=== PATIENT | female | born 1995 | race Hispanic/Latino ===

== ENCOUNTER 2018-07-11 12:23 | Emergency (ER) | payer OTHER ==
[2018-07-11 13:00] LABS: #Eosinphils 0.1 thou/uL (0.0-0.7); #Monocytes 0.8 thou/uL (0.11-0.59); #Neutrophils 6.5 thou/uL (1.40-6.50); %Basophils 0.3 % (0.0-1.0); %Eosinophils 1.1 % (0.0-10.0); %Lymphocytes 21.2 % (21.0-51.0); %Monocytes 8.1 % (0.0-10.0); %Neutrophils 69.3 % (42.0-75.0); Hemoglobin 12.4 g/dL (12.0-16.0); Mean Corpuscular HGB CONC 33.6 g/dL (32.0-36.0); Mean Corpuscular Hemoglobin 29.8 pg (27.0-31.0); Mean Corpuscular Volume 88.6 fL (78.0-98.0); Mean Platelet Volume 8.2 fL (7.4-10.4); Platelet Count 278 thou/uL (130-400); RBC Distribution Width 13.6 % (11.5-14.5); Red Blood Cell (RBC) Count 4.16 mill/uL (4.20-5.40); White Blood Cell (WBC) Count 9.4 thou/uL (4.8-10.8)
[2018-07-11 13:24] LABS: ALT (SGPT) 10 U/L (8-55); AST (SGOT) 11 U/L (5-34); Albumin 3.4 g/dL (3.5-5.0); Alkaline Phosphatase 60 U/L (40-150); Anion Gap 15 mmol/L (10-20); BUN (Urea Nitrogen) 10 mg/dL (7.0-18.7); Bilirubin, Total 0.3 mg/dL (0.2-1.2); Calc. Creatinine Clearance 0 mL/min (70-130); Calcium 8.9 mg/dL (7.8-10.44); Carbon Dioxide 17 mmol/L (22-29); Chloride 109 mmol/L (98-107); Estimated GFR-MDRD Greater than 90; Globulin 3.1 g/dL (2.4-3.5); Glucose 92 mg/dL (70-105); Potassium 3.6 mmol/L (3.5-5.1); Protein, Total 6.5 g/dL (6.0-8.3); Sodium 137 mmol/L (136-145)
[2018-07-11 13:56] LABS: Bilirubin Negative (Negative); Blood, Urine Large (Negative); Clarity CLEAR (Clear); Glucose, Urine (Dipstick) Negative (Negative); Leukocyte Small (Negative); Nitrite Negative (Negative); Protein, Urine (Dipstick) Negative (Neg-Trace); Specific Gravity, Urine 1.022 (1.002-1.036); Urobilinogen 0.2 mg/dL (0.2-1.0)
[2018-07-11 13:58] LABS: Bacteria/HPF None Seen HPF (None Seen); Hyaline Casts/LPF 4-6 HYALINE CAST LPF (0-3 Hyaline)
[2018-07-13 20:35] LABS: Chlamydia by PCR DETECTED (NotDetected); GC by PCR Not Detected (NotDetected)
== END 2018-07-11 14:57 | disposition home or self-care (01) ==
LOC: ERS 12:23
DX: Z3A.17 17 weeks gestation of pregnancy (principal); O20.0 Threatened abortion; O99.512 Diseases of the respiratory system complicating pregnancy, second trimester; J45.909 Unspecified asthma, uncomplicated
CPT/HCPCS: 36415; 80053; 81003; 81015; 84702; 85025; 87480; 87491; 87510; 87591; 87660; 99284

== ENCOUNTER 2018-12-20 19:15 | Inpatient (IN) | payer OTHER ==
[~2018-12-20 19:15] MED LIST: Acetaminophen 500 MG TAB PO PRN; Bupivacaine/Epinephrine 0.25% 30 ML VIAL ONE; Butorphanol Tartrate 1 MG/ML VIAL SLOW IVP PRN; Carboprost 250 MCG/ML AMP IM PRN; Diphenoxylate HCl/Atropine Tablet PO PRN; Docusate 100 MG CAP PO PRN; HYDROcodone/Acetaminophen 5/325 mg Tablet PO PRN; Ibuprofen 800 MG TAB PO PRN; Lidocaine 1% (PF) 30 ML VIAL SC PRN; Lidocaine 2% MPF 10 ML AMP (For Epidural Use) ONE; Methylergonovine 0.2 MG/ML VIAL IM PRN; Misoprostol 200 MCG TAB PR PRN; Ondansetron PF 4 MG/2 ML Vial IVP PRN; PROPOFOL 200 MG/20 ML VIAL ONE; Promethazine HCl 25 MG/ML VIAL IM PRN; Succinylcholine Chloride 20 MG/ML 10 ml SYRINGE FS ONE; Zolpidem Tartrate 5 MG TAB PO PRN; hydrALAZINE 20 MG/ML VIAL SLOW IVP PRN
--- NOTE | 2018-12-20 19:25 | PDOC.LDHP ---
Labor and Delivery H&P Chief complaint: scheduled induction HPI: 23 y/o at 40 and 4/7 weeks for term induction (post-dates). Current gestational age (weeks): 40 Due date: 12/16/18 Grav: 1 Para: 0 Current complications: none Abnormal US findings: No Current medications: pre- vitamins Previous surgical history: none Allergies/Adverse Reactions: Allergies Allergy/AdvReac Type Severity Reaction Status Date / Time No Known Allergies Allergy Unverified 02/23/14 11:53 - Physical Exam Vital signs reviewed and normal: yes General: NAD, resting Heart: RRR Lungs: CTAB Abdomen: gravid Extremeties: no edema FHT: category 1 - Assessment L&D Assessment: elective induction at term - Plan Plan: admit to L&D, cervical ripening
[2018-12-20] MEDS ORDERED: NS w/ Oxytocin 10 units 500 ML IV SCH (19:45)
[2018-12-20] MEDS ORDERED: NS / Oxytocin 40 units/1000ml 1,000 ML IV PRN (20:00)
[2018-12-20 20:12] VITALS: BMI 38.4
[2018-12-20 20:24] LABS: Hemoglobin 10.4 g/dL (12.0-16.0); Mean Corpuscular HGB CONC 32.9 g/dL (32.0-36.0); Mean Corpuscular Hemoglobin 26.7 pg (27.0-31.0); Mean Corpuscular Volume 81.2 fL (78.0-98.0); Mean Platelet Volume 9.5 fL (7.4-10.4); Platelet Count 246 thou/uL (130-400); RBC Distribution Width 13.6 % (11.5-14.5); Red Blood Cell (RBC) Count 3.88 mill/uL (4.20-5.40); White Blood Cell (WBC) Count 14.1 thou/uL (4.8-10.8)
[2018-12-20] MEDS: Misoprostol 100 MCG TAB VAG SCH ×2 (20:45→20:58)
[2018-12-20] MEDS: Lactated Ringer's 1,000 ML IV SCH (20:47)
[2018-12-20 21:02] LABS: Syphilis Antibody Nonreactive (Nonreactive); Syphilis Antibody Index 0.07 S/CO (<1.00 Non-Reactive)
[2018-12-20 23:09] LABS: HBSAg Index 0.26 S/CO (0-0.99); Hep B Surf Ag Non-Reactive S/CO (NonReactive)
[2018-12-21] MEDS: Misoprostol 100 MCG TAB VAG SCH ×4 (00:27→22:10)
[2018-12-21] MEDS: Lactated Ringer's 1,000 ML IV SCH ×4 (05:10→22:02)
[2018-12-21] MEDS: NS w/ Oxytocin 10 units 500 ML IV SCH (06:10)
[2018-12-21] MEDS ORDERED: Ondansetron PF 4 MG/2 ML Vial ONE ×2 (10:39→23:05)
[2018-12-21] MEDS ORDERED: Succinylcholine Chloride 20 MG/ML 10 ml SYRINGE FS ONE (10:39)
[2018-12-21] MEDS ORDERED: PROPOFOL 200 MG/20 ML VIAL ONE (10:39)
[2018-12-21] MEDS ORDERED: Fentanyl 4 mcg/Bup 0.1% Cadd 100 ML ONE ×2 (11:54→18:34)
[2018-12-21] MEDS ORDERED: Acetaminophen 325 MG TAB PO PRN (14:38)
[2018-12-21] MEDS ORDERED: Promethazine HCl 25 MG/ML VIAL IM PRN ×2 (14:38)
[2018-12-21] MEDS ORDERED: Ondansetron PF 4 MG/2 ML Vial IVP PRN ×2 (14:38)
[2018-12-21] MEDS ORDERED: Ketorolac Tromethamine 30 MG/ML VIAL IVP PRN (14:38)
[2018-12-21] MEDS ORDERED: ePHEDrine/0.9% NaCl/PF SYRINGE 50 mg/10 ml SLOW IVP PRN (14:38)
[2018-12-21] MEDS ORDERED: Lactated Ringer's 500 ML IV PRN (14:38)
[2018-12-21] MEDS ORDERED: Naloxone HCl 0.4 mg/ml Vial IVP PRN ×4 (14:38)
[2018-12-21] MEDS ORDERED: diphenhydrAMINE 50 MG/ML VIAL IVP PRN ×2 (14:38)
[2018-12-21] MEDS ORDERED: Naloxone HCl 0.4 mg/ml Vial IV PRN (14:38)
[2018-12-21] MEDS ORDERED: Promethazine HCl 25 MG SUPP PR PRN (14:38)
[2018-12-21] MEDS ORDERED: Communication Order-Pharmacy FS SCH ×2 (14:45)
[2018-12-21] MEDS ORDERED: Fentanyl 4 mcg/Bupivacaine 0.1% Cassette 100 ML EPIDURAL SCH (14:45)
[2018-12-21] MEDS ORDERED: NS / Oxytocin 40 units/1000ml 1,000 ML ONE (19:01)
[2018-12-21] MEDS ORDERED: Lidocaine 1% (PF) 30 ML VIAL ONE (19:01)
[2018-12-21] MEDS ORDERED: Oxytocin 10 UNITS/ML VIAL ONE (23:05)
[2018-12-21] MEDS ORDERED: Lidocaine 2% 10 ML INJ ONE (23:05)
[2018-12-21] MEDS ORDERED: Fentanyl 100 MCG/2 ML VIAL ONE (23:12)
[2018-12-21] MEDS ORDERED: MORPHINE 5 MG/10 ML PF VIAL ONE (23:13)
[2018-12-21] MEDS ORDERED: Ketamine 50 MG/ML (10ML VIAL) ONE (23:29)
[2018-12-21] MEDS ORDERED: Midazolam HCl 2 mg/2 ml Vial ONE (23:30)
[2018-12-22 00:02] LABS: Actual Bicarbonate (HCO3v) 25 mEq/L (22-28); Base Excess -1.9 mEq/L (-2.0 to +3.0); pH (Cord, venous) 7.31 (7.32-7.43)
[2018-12-22 00:04] LABS: Actual Bicarbonate (HCO3a) 24.1 mEq/L (22-28); Base Excess (BEa) -6.7 mEq/L (-2.0 to +3.0)
[2018-12-22] MEDS ORDERED: Methylergonovine 0.2 MG/ML VIAL ONE (00:07)
[2018-12-22] MEDS ORDERED: Azithromycin 500 MG VIAL ONE (00:36)
[2018-12-22] MEDS ORDERED: NS / Oxytocin 40 units/1000ml 1,000 ML ONE (00:37)
[2018-12-22] MEDS ORDERED: Ketorolac Tromethamine 30 MG/ML VIAL IVP PRN (01:02)
[2018-12-22] MEDS ORDERED: L&D-Morphine 4 MG/ML VIAL SLOW IVP PRN (01:02)
[2018-12-22] MEDS ORDERED: Ondansetron PF 4 MG/2 ML Vial IVP PRN ×2 (01:02→02:55)
[2018-12-22] MEDS ORDERED: Naloxone HCl 0.4 mg/ml Vial IVP PRN ×2 (01:02)
[2018-12-22] MEDS ORDERED: Promethazine HCl 25 MG SUPP PR PRN (01:02)
[2018-12-22] MEDS ORDERED: Promethazine HCl 25 MG/ML VIAL IM PRN ×2 (01:02→02:55)
[2018-12-22] MEDS ORDERED: HYDROmorphone 2 MG/ML VIAL SLOW IVP PRN (01:02)
[2018-12-22] MEDS ORDERED: Meperidine HCl/PF 25 MG/ML VIAL SLOW IVP PRN (01:02)
[2018-12-22] MEDS ORDERED: diphenhydrAMINE 50 MG/ML VIAL IVP PRN (01:02)
[2018-12-22] MEDS ORDERED: Ondansetron HCl/PF 4 MG/2 ML Vial IVP PRN (01:02)
[2018-12-22] MEDS ORDERED: Naloxone HCl 0.4 mg/ml Vial IV PRN (01:02)
[2018-12-22] MEDS ORDERED: Meperidine HCl/PF 25 MG/ML VIAL ONE (01:04)
[2018-12-22] MEDS ORDERED: Ketorolac Tromethamine 30 MG/ML VIAL IVP SCH (01:15)
[2018-12-22] MEDS ORDERED: Azithromycin 500 MG in Sodium Chloride 0.9% 250 ML 250 ML IVPB SCH (01:15)
[2018-12-22] MEDS ORDERED: Communication Order-Pharmacy FS SCH (01:15)
[2018-12-22] MEDS: NS w/ Oxytocin 10 units 500 ML IV SCH (01:52)
[2018-12-22] MEDS: Misoprostol 100 MCG TAB VAG SCH (01:52)
[2018-12-22] MEDS ORDERED: hydrALAZINE 20 MG/ML VIAL SLOW IVP PRN (02:55)
[2018-12-22] MEDS ORDERED: Simethicone Chewable 80 MG TAB PO PRN (02:55)
[2018-12-22] MEDS ORDERED: Methylergonovine 0.2 MG/ML VIAL IM PRN (02:55)
[2018-12-22] MEDS ORDERED: diphenhydrAMINE 25 MG CAP PO PRN (02:55)
[2018-12-22] MEDS ORDERED: Bisacodyl 10 MG SUPP PR PRN (02:55)
[2018-12-22] MEDS ORDERED: Lanolin Ointment 7 GM TUBE TOP PRN (02:55)
[2018-12-22] MEDS ORDERED: NS / Oxytocin 40 units/1000ml 1,000 ML IV SCH (02:55)
[2018-12-22] MEDS ORDERED: Misoprostol 200 MCG TAB PR PRN (02:55)
[2018-12-22] MEDS: CEFAZOLIN 2 GM in Premix Bag 1 BAG IVPB SCH ×3 (06:21→22:47)
[2018-12-22 06:35] LABS: Hemoglobin 9.6 g/dL (12.0-16.0); Mean Corpuscular HGB CONC 32.9 g/dL (32.0-36.0); Mean Corpuscular Hemoglobin 26.7 pg (27.0-31.0); Mean Corpuscular Volume 81.1 fL (78.0-98.0); Mean Platelet Volume 9.4 fL (7.4-10.4); Platelet Count 210 thou/uL (130-400); Red Blood Cell (RBC) Count 3.59 mill/uL (4.20-5.40); White Blood Cell (WBC) Count 24.8 thou/uL (4.8-10.8)
[2018-12-22] MEDS ORDERED: Varicella virus, LIVE 0.5 ML VIAL SC ONE (09:00)
[2018-12-22] MEDS ORDERED: Measles/Mumps/Rubella 10 MCG/0.5 ML VIAL SC ONE (09:00)
[2018-12-22] MEDS ORDERED: Adacel (T-DAP) 0.5 ML SYRINGE IM ONE (09:00)
[2018-12-22] MEDS ORDERED: Fentanyl 100 MCG/2 ML VIAL ONE (11:21)
[2018-12-22] MEDS ORDERED: Midazolam HCl 2 mg/2 ml Vial ONE (11:21)
[2018-12-22] MEDS ORDERED: Bicitra 30 ML UDCUP ONE (11:21)
[2018-12-22] MEDS ORDERED: Midazolam HCl 5 mg/5 ml Vial ONE (11:21)
[2018-12-22] MEDS ORDERED: KETAMINE 100 MG/ML (5ML VIAL) ONE (11:21)
[2018-12-22] MEDS ORDERED: HYDROcodone/Acetaminophen 5/325 mg Tablet PO PRN (13:15)
--- NOTE | 2018-12-22 13:54 | OP ---
DATE OF PROCEDURE: 12/22/2018 I was called to the operating room to assist Dr. Murguia with some post delivery bleeding persistent after a closure of the hysterotomy. Dr. Murguia in the process was called away for delivery and I assumed care. On inspection of the uterus, which had been exteriorized at the time of scrubbing in, and noted that there was some bleeding just around the right apex of the wound, just medial to the uterine vessels with 2-0 chromic and on a [id number]. The bleeding was made hemostatic and under good control. Further inspection of the hysterotomy and overlying muscle bed and fascia revealed good hemostasis. The uterus was returned back to the abdomen, and the abdomen was irrigated thoroughly and then evaluation of the hysterotomy again was made confirming hemostasis. The fascia was then closed with #1 Vicryl in a running fashion. Skin was closed with 3-0 Monocryl on a Kadeem needle and followed by Dermabond. The patient at that point was then turned back over to the care of Dr. Murguia, who had returned to the OR. Total amount of time spent was approximately 20 minutes. Job ID: [id number]
[2018-12-22] MEDS: HYDROcodone/Acetaminophen 5/325 mg Tablet PO PRN ×2 (13:58→22:48)
[2018-12-22] MEDS ORDERED: Sodium Chloride 0.9% 0 ML ONE (14:20)
[2018-12-22 14:50] LABS: Band 30 % (5-11); Lymphocytes 3 % (21-51); MDiff Complete? YES; Mean Corpuscular Hemoglobin 26.4 pg (27.0-31.0); Mean Corpuscular Volume 82.5 fL (78.0-98.0); Mean Platelet Volume 9.3 fL (7.4-10.4); Monocytes 4 % (0-10); Neutrophil 63 % (42-75); Platelet Count 194 thou/uL (130-400); Platelet Morphology Comment Appears Adequate; RBC Distribution Width 14.1 % (11.5-14.5); Red Blood Cell (RBC) Count 3.42 mill/uL (4.20-5.40); White Blood Cell (WBC) Count 21.4 thou/uL (4.8-10.8)
[2018-12-22 14:57] LABS: ALT (SGPT) 11 U/L (8-55); AST (SGOT) 22 U/L (5-34); Albumin 2.6 g/dL (3.5-5.0); Alkaline Phosphatase 149 U/L (40-150); Anion Gap 11 mmol/L (10-20); BUN (Urea Nitrogen) 6 mg/dL (7.0-18.7); Bilirubin, Total 0.5 mg/dL (0.2-1.2); Calc. Creatinine Clearance 206 mL/min (70-130); Calcium 8.1 mg/dL (7.8-10.44); Carbon Dioxide 23 mmol/L (22-29); Chloride 107 mmol/L (98-107); Estimated GFR-MDRD Greater than 90; Globulin 2.7 g/dL (2.4-3.5); Glucose 81 mg/dL (70-105); Potassium 3.7 mmol/L (3.5-5.1); Protein, Total 5.3 g/dL (6.0-8.3); Sodium 137 mmol/L (136-145)
[2018-12-22] MEDS: metroNIDAZOLE 500 MG in Premix Bag 1 BAG IVPB SCH (17:20)
[2018-12-22] MEDS ORDERED: metroNIDAZOLE 500 MG in Premix Bag 1 BAG IVPB SCH (22:00)
[2018-12-22] MEDS ORDERED: Sodium Chloride 0.9% 20 ML ONE (22:13)
[2018-12-22] MEDS: Ibuprofen 800 MG TAB PO SCH (22:48)
[2018-12-23] MEDS: metroNIDAZOLE 500 MG in Premix Bag 1 BAG IVPB SCH ×4 (00:14→23:31)
[2018-12-23] MEDS: HYDROcodone/Acetaminophen 5/325 mg Tablet PO PRN ×3 (04:37→23:29)
[2018-12-23] MEDS ORDERED: Ibuprofen 800 MG TAB PO SCH (06:00)
[2018-12-23] MEDS: Ibuprofen 800 MG TAB PO SCH ×3 (06:33→22:00)
--- NOTE | 2018-12-23 07:23 | PDOC.PP ---
Post Progress Note Post Day #: 1 PO intake tolerated: yes Flatus: yes Ambulation: yes Vital Signs (12 hours) Temp Pulse Resp BP BP Pulse Ox 12/23/18 04:24 97.9 F 113 H 20 122/72 12/23/18 00:14 98.9 F 118 H 20 118/67 12/22/18 19:48 98.8 F 123 H 20 119/70 95 Weight Weight 210 lb - Physical Examination General: NAD Cardiovascular: no m/r/g, RRR Respiratory: clear to auscultation bilaterally, non-labored breathing Abdominal: + bowel sounds, lochia, no distention, appropriately TTP Extremities: negative homans (B) Skin: CS incision dry & intact, no rash Neurological: no gross focal deficits Psychiatric: A&Ox3, normal affect Result Diagrams: 12/22/18 14:08 12/22/18 14:08 Additional Labs: Post Labs Blood Type A POSITIVE 12/20/18 20:55 Hep Bs Antigen Non-Reactive S/CO (NonReactive) 12/20/18 20:09 - Assessment/Plan Patient is having some tachycardia, with EKG showing NL sinus Rhythm. CBC and CMP are unremarkable. Patient is eating lunch, asymptomatic. Will start FLAGYL and finish Ancef doses ordered. WBC elevated to 25 post CS, and endometritis is of concern given difficulties delivering the fetus.
--- NOTE | 2018-12-23 19:22 | PDOC.PP ---
Post Progress Note Post Day #: 2 PO intake tolerated: yes Flatus: yes Ambulation: yes Vital Signs (12 hours) Temp Pulse Resp BP Pulse Ox 12/23/18 17:55 98.4 F 112 H 18 117/56 L 12/23/18 16:38 98.1 F 127 H 20 127/70 12/23/18 11:50 99 12/23/18 11:31 97.7 F 108 H 20 122/71 12/23/18 08:20 92 L 12/23/18 08:10 97.9 F 105 H 20 93/50 L 92 L Weight Weight 210 lb - Physical Examination Cardiovascular: no m/r/g Respiratory: clear to auscultation bilaterally, non-labored breathing Abdominal: + bowel sounds, lochia, no distention Extremities: negative homans (B) Skin: CS incision dry & intact, no rash Neurological: no gross focal deficits Psychiatric: A&Ox3, normal affect Result Diagrams: 12/22/18 14:08 12/22/18 14:08 Additional Labs: Post Labs Blood Type A POSITIVE 12/20/18 20:55 Hep Bs Antigen Non-Reactive S/CO (NonReactive) 12/20/18 20:09
[2018-12-24] MEDS: Ibuprofen 800 MG TAB PO SCH ×2 (05:18→14:36)
[2018-12-24] MEDS ORDERED: Sodium Chloride 0.9% 10 ML ONE (07:55)
[2018-12-24] MEDS: metroNIDAZOLE 500 MG in Premix Bag 1 BAG IVPB SCH (07:58)
[2018-12-24 11:34] VITALS: BP 131/75; TEMP 98.2
[2018-12-24] MEDS: HYDROcodone/Acetaminophen 5/325 mg Tablet PO PRN (14:36)
== END 2018-12-24 17:45 | disposition home or self-care (01) | DRG 787 ==
LOC: L&D 19:35 → 3SW 12-22 02:50
PROVIDERS: ADMIT Obstetrics & Gynecology; ATTEND Obstetrics & Gynecology
PROC: 10D00Z1 Extraction of Products of Conception, Low, Open Approach (ICD-10-PCS; principal; 2018-12-22)
DX: O48.0 Post-term pregnancy (principal); O72.1 Other immediate postpartum hemorrhage; Z3A.40 40 weeks gestation of pregnancy; Z37.0 Single live birth; R00.0 Tachycardia, unspecified; O62.1 Secondary uterine inertia
CPT/HCPCS: 36415; 51702; 80053; 82805; 85027; 86780; 86850; 86900; 86901; 87340; 90715; 93005; 93010; J0456; J0595; J0690; J1885; J2001; J2175; J2210; J2250; J2274; J2405; J2590; J2704; J3010; Q0163

== ENCOUNTER 2022-05-14 13:53 | Emergency (ER) | payer OTHER, SELFPAY | END 2022-05-14 14:20 | disposition home or self-care (01) | LOC: ERS 13:53 | DX: H60.501 Unspecified acute noninfective otitis externa, right ear (principal) | CPT/HCPCS: 99282 ==